=== PATIENT | female | born 1995 | race Hispanic/Latino ===

== ENCOUNTER 2024-07-31 14:30 | Emergency (ER) | payer BC, SELFPAY ==
[2024-07-31] MEDS ORDERED: diphenhydrAMINE 50 MG/ML VIAL ONE (15:06)
[2024-07-31] MEDS ORDERED: Metoclopramide HCl 10 MG (2 mL) VIAL ONE (15:06)
[2024-07-31] MEDS ORDERED: Dexamethasone 10 MG/ML VIAL ONE (15:07)
[2024-07-31] MEDS ORDERED: Ketorolac Tromethamine 30 MG (1 mL) VIAL ONE (15:07)
== END 2024-07-31 16:29 | disposition home or self-care (01) ==
LOC: CSHERS 14:30
DX: G43.909 Migraine, unspecified, not intractable, without status migrainosus (principal)
CPT/HCPCS: 96361; 96374; 96375; J1100; J1200; J1885; J2765